=== PATIENT | female | born 1995 | race Caucasian/White ===

== ENCOUNTER 2016-10-03 08:51 | Emergency (ER) | payer MEDICAID, OTHER ==
[~2016-10-03] VITALS: Ht 152.4 cm; Wt 59.0 kg
[~2016-10-03 08:51] MED LIST: AZO-95TA3 PO; CEPH500 PO; PYRI200T4 PO
[2016-10-03 08:54] VITALS: BP 155/105; PULSE 126; RESP 16; TEMP 100.5; O2SAT 99
[2016-10-03] MEDS ORDERED: SODIUM CHLOR 0.9% 1000 ML INJ 1,000 ML IV SCH (09:09)
[2016-10-03 09:10] LABS: BLOOD, URINE NEG (NEG); GLUCOSE,URINE NEG (NEG); KETONE, URINE NEG (NEG); NITRITE,URINE NEG (NEG); PH, URINE 8.5 (5.0-8.5)
[2016-10-03 09:11] VITALS: BP 124/83; PULSE 128; RESP 16; TEMP 100.1; O2SAT 100
[2016-10-03] MEDS ORDERED: ACETAMINOPHEN 500 MG CPLT PO ONE (09:15)
[2016-10-03] MEDS ORDERED: SODIUM CHLORIDE 0.9% FLUSH 5 ML FLUSH IVF PRN (09:15)
[2016-10-03] MEDS ORDERED: SODIUM CHLOR 0.9% 1000 ML INJ 1,000 ML IV ONE (09:15)
[2016-10-03 09:25] LABS: METHOD OF COLLECTION VOIDED; URINE COLOR STRAW (YELLW/STRAW)
[2016-10-03 09:26] LABS: BACTERIA, URINE RARE /hpf; COMMENT (UR) CULTURE INDICATED; CULTURE IF INDICATED CULTURE INDICATED; SQUAMOUS EPITHELIAL CELL URINE 0-5 /hpf (0-5)
[2016-10-03 09:32] VITALS: O2SAT 100
[2016-10-03 09:50] LABS: AUTOMATED NEUTROPHIL # 4.4 TH/MM3 (1.8-7.7); BASOPHIL # 0.2 TH/MM3 (0-0.2); BASOPHIL % 4.6 % (0.0-2.0); EOSINOPHIL % 0.2 % (0.0-4.0); LYMPH % 7.6 % (9.0-44.0); LYMPHOCYTE # 0.4 TH/MM3 (1.0-4.8); MEAN CELL VOLUME 96.3 FL (80.0-100.0); MEAN CORPUSCULAR HEMOGLOBIN 32.5 PG (27.0-34.0); MEAN CORPUSCULAR HGB CONC 33.8 % (32.0-36.0); MONO % 3.6 % (0.0-8.0); PLATELET COUNT 234 TH/MM3 (150-450); RED BLOOD COUNT 3.94 MIL/MM3 (4.00-5.30); RED CELL DISTRIBUTION WIDTH 13.1 % (11.6-17.2); WHITE BLOOD COUNT 5.2 TH/MM3 (4.0-11.0)
[2016-10-03 09:51] LABS: BICARBONATE 28.6 MEQ/L (21.0-32.0)
[2016-10-03 09:52] LABS: HEMO FLAGS AUTO DIFF
[2016-10-03 09:54] LABS: POTASSIUM 3.9 MEQ/L (3.5-5.1)
[2016-10-03] MEDS ORDERED: CIPROFLOXACIN 500 MG TAB PO ONE (10:00)
[2016-10-03 10:16] LABS: PLATELET ESTIMATE SMEAR NORMAL (NORMAL); PLATELET MORPHOLOGY NORMAL (NORMAL); SCAN/DIFF AUTO DIFF CONFIRMED
[2016-10-03] MEDS ORDERED: CIPR500T2 PO (11:12)
[2016-10-03] MEDS ORDERED: ZOFR4TAB3 SL (11:12)
--- NOTE | 2016-10-03 11:12 | PD ---
HPI Chief Complaint: Cold / Flu Symptoms Time Seen by Provider: 09:09 Travel History International Travel<30 days: No Contact w/Intl Traveler<30days: No Traveled to known affect area: No History of Present Illness HPI Patient is a 21-year-old female presents to emergency department with dysuria as well as feeling ill. Patient states she's been having some body aches as well as upper respiratory symptoms as well. Denies getting a flu shot this year. Patient states she's also had some mild nausea at home without any vomiting. Patient states last time she felt like that she had a urinary tract infection and wanted to be checked for this. Denies any vaginal bleeding or vaginal discharge. Denies any abdominal pain denies any productive cough. PFSH Past Medical History Medical History: Denies Significant Hx Hx Anticoagulant Therapy: No Cardiovascular Problems: No Chemotherapy: No Cerebrovascular Accident: No Diabetes: No Diminished Hearing: No Genitourinary: Yes (UTI FREQUENTLY) Respiratory: No Integumentary: Yes Immunizations Current: Yes ?: Not : 2 Para: 1 : 1 Past Surgical History Section: Yes Hysterectomy: No Social History Alcohol Use: Yes ("FEW SHOTS EVERY COUPLE DAYS") Tobacco Use: No Substance Use: No Allergies-Medications (Allergen,Severity, Reaction): Coded Allergies: Bactrim (Verified Allergy, Intermediate, RASH, 10/03/16) Rash all over Reported Meds & Prescriptions Reported Meds & Active Scripts Active Ciprofloxacin (Ciprofloxacin HCl) 500 Mg Tab 500 Mg PO BID 7 Days Zofran Odt (Ondansetron Odt) 4 Mg Tab 4 Mg SL Q6HR PRN Review of Systems Except as stated in HPI: all other systems reviewed are Neg Physical Exam Narrative GENERAL: Well-developed well-nourished no apparent distress appears quite comfortable and nontoxic. SKIN: Warm and dry. HEAD: Atraumatic. Normocephalic. EYES: Pupils equal and round. No scleral icterus. No injection or drainage. ENT: No nasal bleeding or discharge. Mucous membranes pink and moist. NECK: Trachea midline. No JVD. CARDIOVASCULAR: Tachycardia with regular rhythm.. No murmur appreciated. RESPIRATORY: No accessory muscle use. Clear to auscultation. Breath sounds equal bilaterally. GASTROINTESTINAL: Abdomen soft, non-tender, nondistended. Hepatic and splenic margins not palpable. MUSCULOSKELETAL: No obvious deformities. No clubbing. No cyanosis. No edema. NEUROLOGICAL: Awake and alert. No obvious cranial nerve deficits. Motor grossly within normal limits. Normal speech. PSYCHIATRIC: Appropriate mood and affect; insight and judgment normal. Data Data Last Documented VS Vital Signs Date Time Temp Pulse Resp B/P Pulse Ox O2 Delivery O2 Flow Rate FiO2 10/03/16 09:32 100 Room Air 10/03/16 09:11 100.1 128 16 124/83 Orders Urinalysis - C+S If Indicated (10/03/16 09:01) Ed Urine Pregnancytest Poc (10/03/16 09:01) Basic Metabolic Panel (Bmp) (10/03/16 09:09) Complete Blood Count With Diff (10/03/16 09:09) Iv Access Insert/Monitor (10/03/16 09:09) Ecg Monitoring (10/03/16 09:09) Oximetry (10/03/16 09:09) Sodium Chlor 0.9% 1000 Ml Inj (Ns 1000 M (10/03/16 09:09) Sodium Chloride 0.9% Flush (Ns Flush) (10/03/16 09:15) Sodium Chlor 0.9% 1000 Ml Inj (Ns 1000 M (10/03/16 09:15) Acetaminophen (Tylenol) (10/03/16 09:15) Influenzae A/B Antigen (10/03/16 09:11) Urine Culture (10/03/16 09:05) Ciprofloxacin (Cipro) (10/03/16 10:00) Labs Laboratory Tests Test 10/03/16 10/03/16 09:05 09:26 Urine Collection Type VOIDED Urine Color STRAW Urine Turbidity CLEAR Urine pH 8.5 Urine Specific [place] 1.015 Urine Protein TRACE mg/dL Urine Glucose (UA) NEG mg/dL Urine Ketones NEG mg/dL Urine Occult Blood NEG Urine Nitrite NEG Urine Bilirubin NEG Urine Leukocyte Esterase SMALL Urine WBC 25-49 /hpf Urine WBC Clumps FEW Urine Squamous Epithelial 0-5 /hpf Cells Urine Bacteria RARE /hpf Microscopic Urinalysis Comment CULTURE INDICATED White Blood Count 5.2 TH/MM3 Red Blood Count 3.94 MIL/MM3 Hemoglobin 12.8 GM/DL Hematocrit 38.0 % Mean Corpuscular Volume 96.3 FL Mean Corpuscular Hemoglobin 32.5 PG Mean Corpuscular Hemoglobin 33.8 % Concent Red Cell Distribution Width 13.1 % Platelet Count 234 TH/MM3 Mean Platelet Volume 7.0 FL Neutrophils (%) (Auto) 84.0 % Lymphocytes (%) (Auto) 7.6 % Monocytes (%) (Auto) 3.6 % Eosinophils (%) (Auto) 0.2 % Basophils (%) (Auto) 4.6 % Neutrophils # (Auto) 4.4 TH/MM3 Lymphocytes # (Auto) 0.4 TH/MM3 Monocytes # (Auto) 0.2 TH/MM3 Eosinophils # (Auto) 0.0 TH/MM3 Basophils # (Auto) 0.2 TH/MM3 CBC Comment AUTO DIFF Differential Comment AUTO DIFF CONFIRMED Platelet Estimate NORMAL Platelet Morphology Comment NORMAL Sodium Level 141 MEQ/L Potassium Level 3.9 MEQ/L Chloride Level 104 MEQ/L Carbon Dioxide Level 28.6 MEQ/L Anion Gap 8 MEQ/L Blood Urea Nitrogen 7 MG/DL Creatinine 0.63 MG/DL Estimat Glomerular Filtration 118 ML/MIN Rate Random Glucose 87 MG/DL Calcium Level 8.9 MG/DL [facility] Medical Decision Making Medical Screen Exam Complete: Yes Emergency Medical Condition: Yes Differential Diagnosis Tachycardia, flu, urinary tract infection, sepsis. Narrative Course Patient was roomed emergency department, she appears quite well however she is tachycardic and has fever. Source of infection is UTI. Discussed diagnosis likely sepsis from urinary source. Rapid flu is negative. I discussed the patient that due to the patient's with her vital signs are admitted to the hospital for observation. She is given 2 L of fluid in the emergency department and requests to go home. I discussed my recommendation for repeat bolus and she declined at this time stating she was feeling much better. Therefore lactic acid was not drawn. She has no CVA tenderness bilaterally ruling out pow nephritis. I discussed with her again my recommendation to stay in the hospital and again she stated she wanted to go home. She is given a dose of Cipro by mouth in emerged Department tolerated this just fine. Urine culture was sent. She will be discharged with ciprofloxacin as well as Zofran. Diagnosis Primary Impression: Urinary tract infection Qualified Code: N30.00 - Acute cystitis without hematuria Med/Other Pt SpecificInfo: Prescription(s) given Scripts Ciprofloxacin 500 Mg [id number] Mg PO BID 7 Days Ref 0 Prov:Shelton Rhoades MD 10/03/16 Ondansetron Odt (Zofran Odt)4 Mg Tab4 Mg SL Q6HR PRN (Nausea/Vomiting) #30 TAB Ref 0 Prov:Shelton Rhoades MD 10/03/16 Disposition: 01 DISCHARGE HOME Condition: Stable Shelton Rhoades MD Oct 03, 2016 11:12
[2016-10-03 11:23] VITALS: BP 136/88
== END 2016-10-03 11:28 | disposition home or self-care (01) ==
LOC: PHEFT 08:51
DX: N30.00 Acute cystitis without hematuria (principal); M79.1 Myalgia; R11.0 Nausea; R00.0 Tachycardia, unspecified; R50.9 Fever, unspecified; Z87.440 Personal history of urinary (tract) infections; Z87.2 Personal history of diseases of the skin and subcutaneous tissue
CPT/HCPCS: 80048; 81001; 84703; 85025; 87086; 87804; 96360; 96361; 99283; J7030

== ENCOUNTER 2017-05-24 13:23 | Emergency (ER) | payer MEDICAID ==
[~2017-05-24] VITALS: Ht 152.4 cm; Wt 56.2 kg
[~2017-05-24 13:23] MED LIST changes: -AZO-95TA3 PO; -CEPH500 PO; +CIPR500T2 PO; -PYRI200T4 PO; +ZOFR4TAB3 SL
[2017-05-24 13:28] VITALS: BP 140/82; PULSE 100; RESP 16; TEMP 99; O2SAT 98
--- NOTE | 2017-05-24 13:56 | PD ---
HPI Chief Complaint: Eye Problems/Injury Time Seen by Provider: 13:40 Travel History International Travel<30 days: No Contact w/Intl Traveler<30days: No Traveled to known affect area: No History of Present Illness HPI This patient complains of infection in her right eye. Duration one day. She's had some clear drainage from it. It's red and itchy. Also has runny nose congestion cough. PFSH Past Medical History Hx Anticoagulant Therapy: No Cardiovascular Problems: No Chemotherapy: No Cerebrovascular Accident: No Diabetes: No Diminished Hearing: No Genitourinary: Yes (UTI FREQUENTLY) Respiratory: No Integumentary: Yes Immunizations Current: Yes ?: Not LMP: 04/23/17 : 2 Para: 1 : 1 Past Surgical History Section: Yes Hysterectomy: No Social History Alcohol Use: Yes ("FEW SHOTS EVERY COUPLE DAYS") Tobacco Use: No Substance Use: No Allergies-Medications (Allergen,Severity, Reaction): Coded Allergies: sulfamethoxazole (Unverified Allergy, Intermediate, RASH, 04/18/17) Rash all over trimethoprim (Unverified Allergy, Intermediate, RASH, 04/18/17) Rash all over Reported Meds & Prescriptions Reported Meds & Active Scripts Active Ciprofloxacin (Ciprofloxacin HCl) 500 Mg Tab 500 Mg PO BID 7 Days Zofran Odt (Ondansetron Odt) 4 Mg Tab 4 Mg SL Q6HR PRN Review of Systems General / Constitutional: No: Fever Eyes: Positive: Drainage HENT: No: Headaches Physical Exam Narrative RESPIRATORY: Respiratory effort unlabored, no retractions or use of accessory muscles. Breath sounds are clear and symmetric. Throat clear SKIN: Focused skin assessment reveals no rash or ulcers. Skin is warm and dry. Palpation shows no induration or nodules. NECK: Symmetrical appearance, midline trachea. No mass or crepitus. Thyroid without enlargement, tenderness, or mass. Left sclerae clear and right is diffusely injected without active drainage. Data Data Last Documented VS Vital Signs Date Time Temp Pulse Resp B/P (MAP) Pulse Ox O2 Delivery O2 Flow Rate FiO2 05/24/17 13:28 99.0 100 16 140/82 (101) 98 MDM Medical Decision Making Medical Screen Exam Complete: Yes Emergency Medical Condition: Yes Medical Record Reviewed: Yes Differential Diagnosis Conjunctivitis, URI, pharyngitis Narrative Course I have reviewed the patient's electronic medical record. Presentation consistent with acute viral illness including conjunctivitis and URI Supportive care discussed No indication for antibiotics Diagnosis Primary Impression: Conjunctivitis due to adenovirus, right eye Additional Impression: Viral upper respiratory tract infection Additional Instructions: Wash hands a lot Don't touch her face Use Opcon-A [id number] eyedrops for symptom relief if desired Med/Other Pt SpecificInfo: Other Disposition: 01 DISCHARGE HOME Condition: Stable Mendel Romero MD May 24, 2017 13:56
== END 2017-05-24 14:16 | disposition home or self-care (01) ==
LOC: PHED 13:23
DX: B30.1 Conjunctivitis due to adenovirus (principal); J06.9 Acute upper respiratory infection, unspecified
CPT/HCPCS: 99282